=== PATIENT | female | born 2000 | race Two or more races ===

== ENCOUNTER 2023-07-24 21:51 | Emergency (ER) | payer OTHER ==
[~2023-07-24] VITALS: Ht 160 cm; Wt 68.0 kg
[2023-07-24 23:08] LABS: HEMATOCRIT 40.9 % (36.0-45.00); HEMOGLOBIN 14.4 g/dL (12.0-15.00); MEAN CELL VOLUME 91.3 fL (80.00-100.00); MEAN CORPUSCULAR HEMOGLOBIN 32.1 pg (27.00-32.0); MEAN CORPUSCULAR HGB CONC 35.2 g/dl (32.0-36.0); PLATELET COUNT 194 K/uL (150-450); RED BLOOD COUNT 4.48 M/uL (4.00-6.00); RED CELL DISTRIBUTION WIDTH 12.4 % (11.5-14.5)
[2023-07-24 23:37] LABS: CALCIUM 8.8 mg/dL (8.5-10.1); CREATININE SERUM 0.8 mg/dL (0.55-1.02); GFR 88.89; POTASSIUM 3.75 mEq/L (3.5-5.1)
[2023-07-25 00:52] LABS: PH,URINE 7.5 (5.0-8.0); URINE APPEARANCE Cloudy; URINE BILIRRUBIN Negative (NEGATIVE); URINE BLOOD Negative; URINE COLOR Yellow; URINE GLUCOSE Negative (NEGATIVE); URINE LEUKOCYTE Negative; URINE NITRATE Negative; URINE PROTEIN Negative (NEGATIVE); URINE UROBILINOGEN 0.2 E.U./dl
[2023-07-25 00:55] LABS: URINE BACTERIA 2680.8 uL (0.0-1933); URINE RBC 4.5 uL (0.0-20.8); URINE WBC 12.9 uL (0.0-23.2)
== END 2023-07-25 02:59 | disposition home or self-care (01) ==
LOC: ER 21:51
PROVIDERS: General Practice
DX: K52.89 Other specified noninfective gastroenteritis and colitis (principal); E86.0 Dehydration